=== PATIENT | male | born 1935 | race Caucasian/White ===

== ENCOUNTER → 2017-07-11 | Outpatient (CLI) | payer MEDICARE, OTHER ==
[~2017-07-11] MED LIST: ACIDOPHILUS PO; ALDACTONE50 MG PO; ALEVE220 MG PO; ALTACE 5MG5 MG PO; AMBIEN 10MG10 MG PO; AVODART 0.5MG0.5 MG PO; CALCIUM W/VITAM1 TAB PO; COREG12.5 MG PO; CYMBALTA; CYMBALTA60 MG PO; DIGITEK0.125 MG PO; DOXAZOCIN; FLOMAX 0.40.4 MG/CAP PO; GABAPENTIN100 MG PO; IRON325 M1 PO; LOPERAMIDE2 MG PO; MELATONIN5 M1 SL; NITROSTAT0.4 MG SL; NITROSTAT0.4 MG/TAB SL; NORCO 325 MG-51 TAB; PLAVIX 75MG TAB75 MG PO; PRAVACHOL 40MG40 MG PO; ROLAIDS220 M1 PO; SIMVASTATIN20 MG PO; ST. JOSEPH81 M2 PO; SUPER EPA 1201200 MG PO; TIAZAC180 MG PO; TYLENOL PM EXTR1 TA1 PO; VITAMIN B121000 MC2 SL; VITAMIN B6200 MG PO; VITAMIN C500 MG PO; VITAMIN D31000 I1 PO; ZOCOR 20MG20 MG PO
== END ==
LOC: COL.RAD 10:48
DX: N18.9 Chronic kidney disease, unspecified (principal); N17.9 Acute kidney failure, unspecified; N40.0 Benign prostatic hyperplasia without lower urinary tract symptoms; N32.89 Other specified disorders of bladder

== ENCOUNTER 2018-11-29 16:36 | Inpatient (IN) | payer MEDICARE, OTHER ==
[~2018-11-29] VITALS: Ht 193 cm; Wt 131.8 kg
[~2018-11-29 16:36] MED LIST changes: +CYMBALTA 60MG60 MG PO; -CYMBALTA60 MG PO; +VITAMIN B12 681 TAB PO; -VITAMIN B121000 MC2 SL
[2018-11-29 17:07] LABS: BASO % 0.4 % (0.0-2.0); EOS # 0.2 (0.0-0.7); EOS % 2.4 % (0-4.0); GRAN # 6.5 (1.4-6.5); GRAN % 69.5 % (42.2-75.2); HEMATOCRIT 38.5 % (42.0-52.0); HEMOGLOBIN 11.5 g/dl (13.5-18.0); LYMPH # 1.6 (1.2-3.4); LYMPH % 17.4 % (20.0-51.0); MEAN CELL VOLUME 95 fl (80.0-100.0); MEAN CORPUSCULAR HEMOGLOBIN 28 pg (27.0-31.0); MEAN CORPUSCULAR HGB CONC 30 g/dl (33.0-37.0); MEAN PLATELET VOLUME 9.8 fl (7.4-10.4); MONO # 0.9 (0.1-0.6); PLATELET COUNT 320 K/mm3 (130-400); RED BLOOD COUNT 4.06 M/mm3 (4.20-5.60); REDCELL DISTRIBUTION WIDTH-CV 17.9 % (11.5-14.5)
[2018-11-29 17:22] LABS: BILIRUBIN,TOTAL 0.3 mg/dL (0.0-1.0); C-REACTIVE PROTEIN 4.4 mg/dL (0.0-0.9); CALCIUM 9.1 mg/dL (8.4-10.2); CREATININE, serum 1.25 mg/dL (0.66-1.25); POTASSIUM 4.3 mmol/L (3.4-5.0); TOTAL PROTEIN 7.5 gm/dL (6.4-8.2)
[2018-11-29 17:29] LABS: ERYTHROCYTE SEDIMENTATION RATE 22 mm/hr (0-30)
[2018-11-29 18:49] LABS: TROPONIN-I < 0.012 ng/mL (0.000-0.035)
[2018-11-29] MEDS ORDERED: PROTONIX 40MG T40 MG PO (18:55)
[2018-11-29] MEDS ORDERED: PROAIR HFA0.09 MG/AC IH (18:56)
[2018-11-29] MEDS ORDERED: ASPIRIN 81M81 MG/TA2 PO (18:57)
[2018-11-29] MEDS ORDERED: ZEBETA 5MG5 MG PO (18:57)
[2018-11-29] MEDS ORDERED: HYZAAR 12.5 MG-1 TAB PO (18:58)
[2018-11-29] MEDS ORDERED: TYLENOL 8 HR PO (18:59)
[2018-11-29] MEDS ORDERED: VESICARE10 MG PO (18:59)
[2018-11-29] MEDS ORDERED: THE MEDICINE S200 M2 PO (19:00)
[2018-11-29] MEDS ORDERED: NATURAL E400 IU PO (19:01)
[2018-11-29] MEDS ORDERED: FLORAJEN A20 Billion PO (19:02)
[2018-11-29] MEDS ORDERED: VITAMIN D31000 I1 PO (19:02)
[2018-11-29] MEDS ORDERED: THEROMEGA1000 MG PO (19:02)
[2018-11-29] MEDS ORDERED: AMBIEN 5MG TABLE5 MG PO (19:10)
[2018-11-29] MEDS ORDERED: AMBIEN 10MG10 MG PO (19:47)
[2018-11-29] MEDS ORDERED: TYLENOL 500MG500 MG PO (19:49)
[2018-11-29] MEDS ORDERED: VITAMIN E 400 U4001 PO (19:51)
[2018-11-29] MEDS ORDERED: DEMADEX 20MG20 M1 PO (19:56)
[2018-11-29 22:00] VITALS: BP 127/90; PULSE 73
[2018-11-29 22:32] LABS: INR 1.2 (0.8-3.0); PROTHROMBIN TIME 13.5 SECONDS (9.7-12.8)
--- NOTE | 2018-11-29 22:55 | NUR ---
PT ARRIVED FROM ER BY SELF VIA GURNEY. PT IS ABLE TO AMBULATE AND USES CANE BUT GAIT IS NOT STEADY. PT WENT TO BATHROOM AND REMOVED GOWN AND DISLODGED IV FROM RIGHT AC. CATHETER IN TAKE AND PRESSURE APPLIED TILL BLEEDING STOPPED AND DRSG APPLIED. PT HAS TROUBLE FOLLOWING SOME DIRECTIONS. NEW IV STARTED IN RIGHT FOREARM X2 ATTEMPTS WITHOUT DIFFICULTIES. PT ADVISED THAT HE HAS NO CLUE OF WHAT MEDICATIONS HE TAKES AND TO WAIT TILL THE MORNING WHEN HIS COMES IN TO SEE HIM. PT'S LEFT ARM IS RED, SWOLLEN, AND HAS DRESSING OVER THE ELBOW PART OF ARM. PT IS PLEASANT AND COOPERATIVE. PT IS AWARE THAT HE WILL BE NPO AFTER MIDNIGHT. PT WAS GIVEN A SANDWICH BOX WITH ORANGE JUICE. BED ALARM PUT ON. ALSO PT IS ENCOURAGED TO USE THE URINAL IN BED.
[2018-11-29 23:24] VITALS: BP 147/51; PULSE 62
[2018-11-30] VITALS (10 sets, daily range): BP systolic 119–165; BP diastolic 38–94; PULSE 61–87; TEMP 97.8–98.6
--- NOTE | 2018-11-30 03:46 | NUR ---
RECEIVED CALL FROM TELEMETRY THAT LEADS WERE OFF OF PT. WENT INTO ROOM AND PT WAS SITTING BY THE WINDOW AND PT HAD TAKEN OFF ALL CLOTHING AND ROME WRAP FROM DRSG ON LEFT ARM. PT WAS COMPLETELY NUDE. PT WAS CONFUSSED. PT DID NOT REMEMBER THAT HE HAD A GOWN ON AND THAT WAS PROTECTIVE OFF HIS PERSONAL BELONGS. PT ADVISED THAT HE WAS GOING TO LEAVE. PT ADVISED THAT HE WAS SUPPOSE TO ONLY STAY FOR 3 HOURS. PT HAD WET THE BED. PT ALSO, FOLDED THE BLANKET AND TOP SHEET OF THE BED. PT'S FACE WAS RED AND PT KEPT LAUGHING IN A WEIRD LAUGH. PT WAS MOVED TO ROOM 357 TO BE CLOSER TO NURSES STATION TO WATCH PT CLOSELY. TALKED TO PT AND ADVISED HIM THAT HIS LEFT ARM HAS A SERIOUS INFECTION AND NEEDS TO BE TREATED. 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 PT WAS GOING TO CALL HIS MOTHER. ADVISED PT OF THE TIME AND THE PT DID NOT HAVE ANY IDEA IT WAS THAT TIME. CONVINCED PT THAT HE NEEDED TO TRY AND GET SOME REST. PT LAID DOWN IN BED. PUT THE BED ALARM ON AND CALL LIGHT WITHIN REACH.
--- NOTE | 2018-11-30 04:20 | NUR ---
CIRO HUERTA WAS ADVISED OF PT'S CONDUCT AND CHANGE IN MENTAL STATUS. CIRO HUERTA WENT INTO ROOM TO ASSESS. PT WAS A/O X4 AND PLEASANT. PT ADVISED WHAT A LITTLE SLEEP CAN DO FOR A PERSON. PT WAS ABLE TO GO BACK TO SLEEP.
--- NOTE | 2018-11-30 05:32 | NUR ---
PT HAS BEEN UP A FEW TIME SINCE 419, BUT HE IS REMINDED THAT IT IS STILL EARLY AND HE REALLY HAS NOT GOTTEN MUCH SLEEP. PT SLEEPS AND STATES, "YES, I KNOW YOU ARE RIGHT. I WILL TRY TO GO BACK TO SLEEP." PT THIS LAST TIME WOKE UP LOOKING FOR HIS . PT WAS ADVISED THAT IT IS STILL EARLY AND SHE WILL PROBABLY BE IN LATER THIS MORNING. PT WAS ASSISTED BACK INTO BED AND BED ALARM PLACED BACK ON, WITH CALL LIGHT WITHIN REACH.
--- NOTE | 2018-11-30 06:42 | NUR ---
PT IS AWAKE AND SITTING AT SIDE OF BED. PT IS WRENCHING HANDS. PT HAS A WORRIED LOOK ON FACE. ASKED PT WHAT HE WAS WORRIED ABOUT AND HE STATED, "I AM WORRIED ABOUT MY ARM AND MY . MY IS NOT HERE YET." ADVISED HIM THAT IT IS STILL EARLY FOR HIS TO BE HERE AND VISITING HOURS START AT 8AM. PT FELT BETTER, BUT WANTED TO SIT AT SIDE OF BED. LEFT ARM IS STILL RED, SWOLLEN, AND WARM TO TOUCH. PT IS ADVISED THAT HE HAS A CONSULT WITH DR. [facility]. NO NEEDS AT THIS TIME. CALL LIGHT IN REACH.
[2018-11-30 07:53] LABS: BASO % 0.4 % (0.0-2.0); EOS # 0.2 (0.0-0.7); EOS % 2.2 % (0-4.0); GRAN # 6.9 (1.4-6.5); GRAN % 69.1 % (42.2-75.2); HEMATOCRIT 37.6 % (42.0-52.0); HEMOGLOBIN 11.1 g/dl (13.5-18.0); LYMPH # 1.8 (1.2-3.4); LYMPH % 17.6 % (20.0-51.0); MEAN CELL VOLUME 94 fl (80.0-100.0); MEAN CORPUSCULAR HEMOGLOBIN 28 pg (27.0-31.0); MEAN CORPUSCULAR HGB CONC 30 g/dl (33.0-37.0); MEAN PLATELET VOLUME 9.9 fl (7.4-10.4); MONO % 10.3 % (1.7-9.3); PLATELET COUNT 316 K/mm3 (130-400); RED BLOOD COUNT 3.99 M/mm3 (4.20-5.60); REDCELL DISTRIBUTION WIDTH-CV 17.6 % (11.5-14.5)
[2018-11-30 07:59] LABS: INR 1.2 (0.8-3.0); PROTHROMBIN TIME 13.6 SECONDS (9.7-12.8)
[2018-11-30 08:05] LABS: ALBUMIN 3.9 gm/dL (3.5-5.0); BILIRUBIN,TOTAL 0.4 mg/dL (0.0-1.0); CALCIUM 9.4 mg/dL (8.4-10.2); CREATININE, serum 1.28 mg/dL (0.66-1.25); POTASSIUM 4.2 mmol/L (3.4-5.0); TOTAL PROTEIN 7.4 gm/dL (6.4-8.2)
--- NOTE | 2018-11-30 09:45 | NUR ---
Pt prepared for surgery. Physical assessment completed. Lt elbow is red, inflammed and swollen. Bilat radial pulses 2+. INT to RFA without redness/swelling. Further physical assessment findings WNL. Pt denies pain but states "my elbow is sore". Pt is alert, pleasant, conversational, but not entirely oriented. This RN at bedside when Dr Eaton removed old dressing and applied new to Lt elbow. On entering room now pt reports, "the took off the old dressing but someone else was going to put the new one on". Pt able to give birthday and location. Will continue to monitor
--- NOTE | 2018-11-30 11:38 | NUR ---
pT ARRIVED TO ROOM postoperatively, on RA he was 85% so this RN applied 2 L NC and lifted HOB. Encouraged to take deep breathes, it slowly increased to 89%. Post op vitals initiated, will continue to monitor
--- NOTE | 2018-11-30 12:32 | NUR ---
Plan to return home with spouse Cinthia at . Patient reports that his is is DPOA-HC. Patient indicated that he does not need home health care services. Pt reports that he uses [facility]. Patient reports that he uses a cane and no other DME. PCP is reported as Dr. Rowell. Patient reports that he is able to drive and does not use the 02 at home. No additional needs reported. Action: Patient may need therapy eval and support in that area. Will follow for care.
--- NOTE | 2018-11-30 13:56 | NUR ---
pT oxygenation maintaining at 96% on 3 L via NC so this RN decreased it to 2 L, will continue to monitor. Vitals stable, pt denies pain, cap refill still brisk in bilateral hands/fingers although pt unable to wiggle figners in lt hand. Wifeat bedside, call light in reach
--- NOTE | 2018-11-30 18:16 | NUR ---
pt back to RA, ate a hearty supper, vitals stable, denies pain, still no movement to left arm/fingers but this is not unexpected. Fingers are quite swollen but cap refill is brisk and will monitor site. Pt assited by two to stand to urinate. New IV started to RFA, fluids infusing. Pt denies needs, at bedside, call light in reach
--- NOTE | 2018-11-30 19:16 | NUR ---
Report given to Maricruz JORGE, pt awake in bed with at bedside, denies needs
--- NOTE | 2018-11-30 20:59 | NUR ---
IN ROOM WITH PT. PT IN BED WITH HOB AT 45 DEGREE ANGLE, RT PLACED PT ON 2L/NC BECAUSE O2 SATS AT 87% RA. PT DENIES PAIN, BUT STRAP AND GOWN AGITATES PT. THEREFORE, UNSNAPPED GOWN AND PUT DOWN AND TOOK STRAP OFF OF SLING. ADVISED PT TO LEAVE ARM ELEVATED ON PILLOW AND NOT TO TAKE OFF DRSG. PT GIVEN SNACK AND WATER. NO FURTHER NEEDS AT THIS TIME, CALL LIGHT IN REACH AND BED ALARM ON.
--- NOTE | 2018-11-30 22:31 | NUR ---
CALLED ANIL HUERTA IN REFERENCE TO PT'S AGITATION AND RESTLESSNESS, ALSO PT'S BP MANUALLY IS 110/38. ANIL HUERTA WILL PUT IN ORDERS FOR SERAQUEL.
[2018-12-01] VITALS (7 sets, daily range): BP systolic 110–167; BP diastolic 43–96; PULSE 60–89; TEMP 96.3–98.7
--- NOTE | 2018-12-01 00:14 | NUR ---
PT VERY AGITATED PT WAS SWINGING AT HIS , LIO JORGE WENT IN AND ADVISED HIM NOT TO DO THAT. PT IN BED PULLING OFF TELEMETRY AND KICKING LEGS IN AIR AND TRYING TO PULL THINGS AROUND HIM. PT LAUGHING FOR NO REASON. CALLED ANIL HUERTA AND ADVISED OF PT'S AGITATION AND RESTLESSNESS.
--- NOTE | 2018-12-01 02:50 | NUR ---
PT VERY AGITATED AND KEEPS PULLING OFF LEADS FROM TELEMETRY. KEEPS TRYING TO STOP HIM, BUT HE HAS LEGS UP IN THE AIR AND KICKING THEM. REMOVED TELEMETRY AND CALLED [facility] TO LET THEM KNOW IT WAS REMOVED COMPLETELY. WAS RELIEVED THAT IT WAS REMOVED, BECAUSE IT WAS ONE LESS THING SHE WOULD HAVE TO WORRY ABLE. CALL LIGHT WITHIN REACH.
--- NOTE | 2018-12-01 04:36 | NUR ---
PT WOULD NOT HOLD STILL WHILE TAKING VS. PT'S PUT ON THE TV AND PT SEEMS TO BE CALMER. PT'S O2 WAS AT 87%, PLACED 2L/NC ON PT. CALL LIGHT WITHIN REACH.
--- NOTE | 2018-12-01 05:05 | NUR ---
ADVISES THAT PT WILL NOT KEEP OXYGEN ON, HE KEEPS PULLING IT OFF HIS FACE.
--- NOTE | 2018-12-01 06:26 | NUR ---
PT TRIED TO TAKE OFF HIS DRSG ON HIS LEFT ARM. ADVISED PT TO LEAVE IT ALONE AND THAT IT NEEDS TO STAY ON. FIXED SMALL PART OF ROME WRAP ON DRSG, BUT STILL NICELY INTACT. PT MOVES FINGERS ON LEFT HAND AND CAP REFILL <3. ALSO COLOR NORMAL. PT TOOK OFF THE OXYGEN THAT WAS PLACED ON HIM, REPORTS HAD A DIFFICULT TIME TRYING TO KEEP IT ON HIM THAT SHE JUST STOPPED TRYING. ALSO TRIED TO STOP PT FROM PULLING OFF DRSG ON LEFT ARM. PT STILL APPEARS TO BE AGITATED AND VERY RESTLESS. ADVISED TO CALL IF SHE NEEDS ANY HELP. CALL LIGHT WITHIN REACH.
[2018-12-01 08:46] LABS: BASO % 0.1 % (0.0-2.0); EOS % 0.1 % (0-4.0); GRAN # 7.6 (1.4-6.5); GRAN % 77.4 % (42.2-75.2); LYMPH # 1.2 (1.2-3.4); LYMPH % 12.2 % (20.0-51.0); MEAN CELL VOLUME 92 fl (80.0-100.0); MEAN CORPUSCULAR HGB CONC 30 g/dl (33.0-37.0); MONO % 9.8 % (1.7-9.3); PLATELET COUNT 235 K/mm3 (130-400); RED BLOOD COUNT 3.17 M/mm3 (4.20-5.60); REDCELL DISTRIBUTION WIDTH-CV 17.2 % (11.5-14.5)
[2018-12-01 08:51] LABS: INR 1.2 (0.8-3.0); PROTHROMBIN TIME 13.1 SECONDS (9.7-12.8)
[2018-12-01 08:59] LABS: HEMATOCRIT 29.3 % (42.0-52.0); HEMOGLOBIN 8.9 g/dl (13.5-18.0); MEAN CORPUSCULAR HEMOGLOBIN 28 pg (27.0-31.0)
[2018-12-01 09:00] LABS: BILIRUBIN,TOTAL 0.3 mg/dL (0.0-1.0); CALCIUM 8.6 mg/dL (8.4-10.2); CREATININE, serum 1.3 mg/dL (0.66-1.25); POTASSIUM 3.7 mmol/L (3.4-5.0); TOTAL PROTEIN 5.9 gm/dL (6.4-8.2)
--- NOTE | 2018-12-01 14:22 | NUR ---
PT SLEEPING. REFUSED TX SO HE COULD REST.
--- NOTE | 2018-12-01 21:00 | NUR ---
PT SITTING IN RECLINER WITH BY SIDE, WATCHING SUPER BOWL. PT DENIES PAIN OR DISCOMFORT. PT'S O2 SATS AT 87% AND REFUSES TO WEAR OXYGEN, LS HAS INSP WHEEZING. PT DENIES SOB. LEFT ARM HAS DRSG, WITH NO EDEMA AND COLOR IS NORMAL AND NO WARM OR S/S OF INFECTION. PT WAS ADVISED OF 1500 ML FLUID RESTRICTION. NO NEEDS AT THIS TIME, CALL LIGHT WITHIN REACH.
--- NOTE | 2018-12-01 22:07 | NUR ---
CALLED ANIL HUERTA AND ADVISED HER THAT PT'S O2 SATS AT 87% RA AND PT REFUSING TO PUT OXYGEN ON. ALSO, IS AWARE THAT HE DOES NOT WANT IT ON AND SHE HAS BEEN OKAY WITH LETTING HIM DO WHAT HE WANTS.
--- NOTE | 2018-12-02 00:58 | NUR ---
PT HAD AN INCONTINENT EPISODE, THEREFORE, HE GOT UP OUT OF BED WITHOUT CALLING FOR ASSISTANCE. THE BED ALARM WENT OFF AND HE WAS ASSISTED TO THE BATHROOM AND PT AND BED WAS CHANGED. PT HAS BEEN RESTING BETTER TONIGHT, SO FAR. IS AT PT'S SIDE, SLEEPING IN RECLINER. PT CONTINUES TO REFUSE OXYGEN. LAST O2 READING WAS 88% ON ROOM AIR, OFFERED OXYGEN, BUT HE REFUSED AGAIN. NO NEEDS AT THIS TIME, CALL LIGHT WITHIN REACH, AND BED ALARM ON.
[2018-12-02 04:30] VITALS: BP 97/51; PULSE 84; TEMP 98
--- NOTE | 2018-12-02 05:21 | NUR ---
PT HAS RESTED/SLEPT MORE THIS NIGHT THAN LAST NIGHT. PT DOES CONTINUE TO GET UP WITHOUT CALLING FOR HELP. THE BED ALARM HAS BEEN GOING OFF. PT HAD AN INCONTINENT EPISODE ONCE THIS NIGHT AND GOWN AND BED CHANGE WAS DONE. PT ALSO GOT UP AND WENT AROUND THE BED AND WAS SITTING AT EDGE, THE BED ALARM WOULD NOT COME ON BECAUSE OF PLACEMENT OF WHERE PT WAS. ADVISED HIM TO PUT CALL LIGHT ON WHEN READY TO GET UP. PT DID NOT CALL BUT STAFF NOTICED HE GOT UP AND ASSISTED HIM. PT WAS ASSISTED BY CHARGE NURSE LIO AND PT GOT OUT OF BREATH FROM WALKING INTO THE BATHROOM AND BACK TO BED. PT'S O2 SATS WERE 82%, LOI RN PLACED O2 ON PT AND O2 SATS WENT UP TO 91% ON 2L/NC. PT LEFT IT ON. WENT INTO ROOM AND PT DID NOT HAVE IN HIS NOSE. ASSISTED HIM WITH PUTTING IT BACK INTO HIS NOSE AND HE LEFT IT IN. PT NOW SITTING IN BED WITH HOB ELEVATED TO 45 DEGREE ANGLE WITH CALL LIGHT WITHIN REACH AND BED ALARM ON.
[2018-12-02 06:00] LABS: BASO % 0.4 % (0.0-2.0); EOS # 0.2 (0.0-0.7); EOS % 2.2 % (0-4.0); GRAN # 6.2 (1.4-6.5); GRAN % 74.3 % (42.2-75.2); LYMPH # 1.1 (1.2-3.4); LYMPH % 13.5 % (20.0-51.0); MEAN CELL VOLUME 93 fl (80.0-100.0); MEAN CORPUSCULAR HEMOGLOBIN 28 pg (27.0-31.0); MEAN CORPUSCULAR HGB CONC 30 g/dl (33.0-37.0); MEAN PLATELET VOLUME 10.4 fl (7.4-10.4); MONO # 0.8 (0.1-0.6); MONO % 9.4 % (1.7-9.3); PLATELET COUNT 267 K/mm3 (130-400); RED BLOOD COUNT 3.58 M/mm3 (4.20-5.60)
[2018-12-02 06:08] LABS: ALBUMIN 3.3 gm/dL (3.5-5.0); BILIRUBIN,TOTAL 0.2 mg/dL (0.0-1.0); CALCIUM 8.9 mg/dL (8.4-10.2); CREATININE, serum 1.34 mg/dL (0.66-1.25); MAGNESIUM 1.6 mg/dL (1.6-2.3); POTASSIUM 3.9 mmol/L (3.4-5.0); TOTAL PROTEIN 6.3 gm/dL (6.4-8.2)
[2018-12-02 06:10] LABS: HEMATOCRIT 33.2 % (42.0-52.0)
--- NOTE | 2018-12-02 06:30 | NUR ---
PT TOOK OFF HIS OXYGEN AGAIN AND TELEMETRY. PT ADVISED THAT HE WANTS TO GET DRESSED AND GET READY TO GO HOME WITH HIS . ADVISED HIM THAT THE DOCTOR TO RELEASE HIM HAS TO SEE HIM FIRST BEFORE HE GOES HOME. PT IS NOT ABLE TO SIT STILL AND HE IS UP AND DOWN OUT OF BED. IS STILL IN ROOM WITH PT. REMOVED ON IV FROM RIGHT FOREARM, CATHETER INTACTED, APPLIED PRESSURE TILL BLEEDING STOPPED, THEN A PROTECTIVE DRSG. CALL LIGHT WITHIN REACH.
--- NOTE | 2018-12-02 07:12 | NUR ---
Sitting up in the chair with his at the bedside. Dr. Eaton was here to see the patient. No pain or needs reported at this time. The call light is in place.
--- NOTE | 2018-12-02 07:25 | NUR ---
DR. BOSWELL CALLED BACK AND ADVISED OF PT'S NON-COMPLIANCE.
[2018-12-02 07:36] VITALS: BP 137/49; PULSE 71; TEMP 97.7
[2018-12-02 10:47] VITALS: BP 154/81; PULSE 60; TEMP 97
--- NOTE | 2018-12-02 11:01 | NUR ---
Initial visit; Patient and his thanked [employer] for looking in on him and keeping him in [employer]'s prayers.
[2018-12-02] MEDS ORDERED: CEPHALEXIN500 M1 PO (14:27)
--- NOTE | 2018-12-02 14:29 | NUR ---
The patient is to discharge back home with his today, 12/02. The patient and patient's were interested in outpatient PT. The patient's reports that she would like to look around at the other therapy centers in [place] and make the appointment. The patient's Nurse Practitioner to write the patient a script for PT. SW presented and explained the IM form to the patient and patient's . The patient verbalized understanding, signed, and he was provided a copy. No additional needs at this time.
[2018-12-02 15:49] VITALS: BP 112/38; PULSE 84; TEMP 97
--- NOTE | 2018-12-02 16:27 | NUR ---
Discharge education completed with the and the patient prior to discharge. All questions answered per this nurse. INT removed. The patient was escorted out via WC.
== END 2018-12-02 16:28 | disposition home or self-care (01) | DRG 500 ==
LOC: COL.ER 16:36 → MEDICAL 19:30
PROVIDERS: Emergency Medicine; Nurse Practitioner Family; Orthopaedic Surgery; ADMIT Family Medicine
PROC: 0MB40ZZ Excision of Left Elbow Bursa and Ligament, Open Approach (ICD-10-PCS; principal; 2018-11-30 12:00)
DX: M71.122 Other infective bursitis, left elbow (principal); I50.23 Acute on chronic systolic (congestive) heart failure; G92 Toxic encephalopathy; L03.114 Cellulitis of left upper limb; F05 Delirium due to known physiological condition; I11.0 Hypertensive heart disease with heart failure; I25.10 Atherosclerotic heart disease of native coronary artery without angina pectoris; B95.61 Methicillin susceptible Staphylococcus aureus infection as the cause of diseases classified elsewhere; J44.9 Chronic obstructive pulmonary disease, unspecified; Z95.5 Presence of coronary angioplasty implant and graft; Z95.0 Presence of cardiac pacemaker; Z85.51 Personal history of malignant neoplasm of bladder; Z87.891 Personal history of nicotine dependence
CPT/HCPCS: 99222-AI; 99232-AI; A9284; J1644; J1940; J2060; J2250; J2795; J3010; J3370; J7050; J7512

== ENCOUNTER → 2019-01-02 | Outpatient (CLI) | payer MEDICARE, OTHER ==
[~2019-01-02] MED LIST changes: +AMBIEN 5MG TABLE5 MG PO; +ASPIRIN 81M81 MG/TA2 PO; +CEPHALEXIN500 M1 PO; +DEMADEX 20MG20 M1 PO; +FLORAJEN A20 Billion PO; +HYZAAR 12.5 MG-1 TAB PO; +NATURAL E400 IU PO; +PROAIR HFA0.09 MG/AC IH; +PROTONIX 40MG T40 MG PO; +THE MEDICINE S200 M2 PO; +THEROMEGA1000 MG PO; +TYLENOL 500MG500 MG PO; +TYLENOL 8 HR PO; +VESICARE10 MG PO; +VITAMIN E 400 U4001 PO; +ZEBETA 5MG5 MG PO
== END ==
LOC: ZCOL.LAB 15:38
DX: M70.32 Other bursitis of elbow, left elbow (principal)

== ENCOUNTER 2019-01-17 14:26 | Emergency (ER) | payer MEDICARE, OTHER ==
[~2019-01-17] VITALS: Ht 193 cm; Wt 122.7 kg
[2019-01-17 14:36] VITALS: TEMP 97.2
[2019-01-17 17:59] VITALS: BP 119/50; PULSE 60
== END 2019-01-17 18:24 | disposition home or self-care (01) ==
LOC: COL.ER 14:26
DX: S52.502A Unspecified fracture of the lower end of left radius, initial encounter for closed fracture (principal); S52.602A Unspecified fracture of lower end of left ulna, initial encounter for closed fracture; Z79.02 Long term (current) use of antithrombotics/antiplatelets; Z79.82 Long term (current) use of aspirin; W01.0XXA Fall on same level from slipping, tripping and stumbling without subsequent striking against object, initial encounter; Y92.009 Unspecified place in unspecified non-institutional (private) residence as the place of occurrence of the external cause
CPT/HCPCS: J2405; J3010; Q4050

== ENCOUNTER 2019-01-23 14:57 | Inpatient (IN) | payer MEDICARE, OTHER ==
[~2019-01-23] VITALS: Ht 193 cm; Wt 127.7 kg
[2019-01-23 15:45] LABS: BASO % 0.4 % (0.0-2.0); EOS # 0.1 (0.0-0.7); EOS % 1.1 % (0-4.0); GRAN # 6.2 (1.4-6.5); GRAN % 77.2 % (42.2-75.2); LYMPH # 0.8 (1.2-3.4); LYMPH % 9.5 % (20.0-51.0); MEAN CELL VOLUME 91 fl (80.0-100.0); MEAN CORPUSCULAR HGB CONC 32 g/dl (33.0-37.0); MEAN PLATELET VOLUME 9.5 fl (7.4-10.4); MONO # 0.9 (0.1-0.6); MONO % 11.2 % (1.7-9.3); PLATELET COUNT 282 K/mm3 (130-400); RED BLOOD COUNT 3.36 M/mm3 (4.20-5.60); REDCELL DISTRIBUTION WIDTH-CV 16.2 % (11.5-14.5)
[2019-01-23 15:48] LABS: ALBUMIN 3.5 gm/dL (3.5-5.0); BILIRUBIN,TOTAL 0.6 mg/dL (0.0-1.0); CALCIUM 8.9 mg/dL (8.4-10.2); CREATININE, serum 2.82 (0.66-1.25); POTASSIUM 4.2 mmol/L (3.4-5.0); TOTAL PROTEIN 6.6 gm/dL (6.4-8.2)
[2019-01-23 15:52] LABS: HEMATOCRIT 30.7 % (42.0-52.0); HEMOGLOBIN 9.9 g/dl (13.5-18.0); MEAN CORPUSCULAR HEMOGLOBIN 29 pg (27.0-31.0)
[2019-01-23 17:01] LABS: COLLECTION METHOD CLEAN CATCH
[2019-01-23 17:09] LABS: PH 5 (5-8); SQUAMOUS EPITHELIAL None Seen /hpf; URINE APPEARANCE Clear; URINE BACTERIA None Seen /hpf; URINE BILIRUBIN Negative (NEGATIVE); URINE BLOOD 2+ (NEGATIVE); URINE COLOR Yellow; URINE GLUCOSE Negative (NEGATIVE); URINE KETONE Negative (NEGATIVE); URINE LEUKOCYTE ESTERASE Negative (NEGATIVE); URINE NITRATE Negative (NEGATIVE); URINE PROTEIN(semi-quant) Negative (NEGATIVE); URINE RBC 20-50 /hpf; URINE UROBILINOGEN Negative (NEGATIVE)
[2019-01-23] MEDS ORDERED: TYLENOL 500MG500 MG PO (19:44)
[2019-01-23] MEDS ORDERED: VITAMIN B12 681 TAB PO (19:45)
[2019-01-23] MEDS ORDERED: ROLAIDS 675 MG-1 CT2 PO (19:47)
[2019-01-23] MEDS ORDERED: IMODIUM A-D2 MG PO (19:48)
[2019-01-23 21:08] VITALS: BP 110/62; PULSE 59; TEMP 97.9
--- NOTE | 2019-01-23 22:51 | NUR ---
PT ARRIVED FROM ER VIA WHEELCHAIR ACCOMPANIED BY HIS . PT HAS ABRASIONS ON BILATERAL KNEES THAT ARE SCABBED, LEFT HIP AREA BRUISED, FACIAL BRUISES ON RIGHT SIDE, BRUISES ON RIGHT ARM, AND CAST ON LEFT ARM FROM PREVIOUS FALL HAD BROKEN HIS WRIST. PT A/O X4, DENIES PAIN OR DISCOMFORT. ASSISTED WITH UPDATING MED DAMEON. PT ATE SANDWICH BOX WHEN CAME UP TO THE FLOOR. PT HAS NO FURTHER NEEDS AT THIS TIME CALL LIGHT WITHIN REACH.
[2019-01-24] VITALS (7 sets, daily range): BP systolic 102–129; BP diastolic 44–84; PULSE 58–71; TEMP 97.6–98.3
--- NOTE | 2019-01-24 | NUR ---
PT'S WAS CONCERNED BECAUSE PT WAS NOT GETTING HIS AMBIEN. CALLED CIRO HUERTA AND CIRO HUERTA ADVISED BECAUSE HE HAD A FALL LAST NIGHT AND HIS KIDNEY FUNCTION WE CANNOT GIVE HIM THE AMBIEN. EXPLAINED TO PT'S WHAT CIRO HUERTA ADVISED WHY HIS AMBIEN WAS BEING HELD. STILL IN ROOM WITH . PT IN BED RESTING. CALL LIGHT WITHIN REACH.
--- NOTE | 2019-01-24 05:06 | NUR ---
CALLED [facility] TO NOTIFY ORTHOPEDICS THAT PT IS HOSPITALIZED HERE, SPOKE TO BENEDICT AND SHE ADVISED THAT THEY HAVE RECEIVED THE CANCELATION FOR THE PT.
[2019-01-24 07:16] LABS: BASO % 0.4 % (0.0-2.0); EOS # 0.3 (0.0-0.7); EOS % 4.5 % (0-4.0); GRAN # 5.1 (1.4-6.5); GRAN % 71.2 % (42.2-75.2); HEMOGLOBIN 10.2 g/dl (13.5-18.0); LYMPH % 13.7 % (20.0-51.0); MEAN CELL VOLUME 94 fl (80.0-100.0); MEAN CORPUSCULAR HEMOGLOBIN 29 pg (27.0-31.0); MEAN CORPUSCULAR HGB CONC 31 g/dl (33.0-37.0); MEAN PLATELET VOLUME 9.7 fl (7.4-10.4); MONO # 0.7 (0.1-0.6); MONO % 9.8 % (1.7-9.3); PLATELET COUNT 296 K/mm3 (130-400); RED BLOOD COUNT 3.47 M/mm3 (4.20-5.60); REDCELL DISTRIBUTION WIDTH-CV 16.6 % (11.5-14.5)
[2019-01-24 07:30] LABS: CREATININE, serum 2.45 (0.66-1.25); POTASSIUM 4.4 mmol/L (3.4-5.0)
[2019-01-24 07:44] LABS: HEMATOCRIT 32.5 % (42.0-52.0)
--- NOTE | 2019-01-24 08:00 | NUR ---
PT ALERT AND ORIENTED X4. PT PLEASANT AND COOPERATIVE. PT ON ROOM AIR. PT'S LUNGS CLEAR THROUGHOUT. PT DENIES COUGH. PT'S ABD WNL. PT HAS CAST TO LEFT WRIST FROM RECENT FRACTURE FROM FALL. PT HAS LARGE BRUISE TO LEFT HIP FROM RECENT FALL. PT HAS ABRASIONS TO BILATERAL KNEES AND SCATTERED BRUISES ALL OVER AND TO RIGHT SIDE OF FACE FROM PREVIOUS FALLS.
--- NOTE | 2019-01-24 10:03 | NUR ---
Initial visit; Patient and his thanked airplane coverer for looking in on him and offering God's blessings.
--- NOTE | 2019-01-24 10:14 | NUR ---
SW attended clinical rounds to disucss discharge planning. Patient lives at home with his and plans to return there upon discharge. Patient's PCP is Dr Lane Rowell but will need to find a new PCP because Dr Rowell is retiring. Patient obtains prescriptions from [facility] and denies difficulty obtaining them. Patient does not have any home health services but PT and OT are consulted and will give their recommendations. Patient has a cane and walker at home but no other DME is reported. Patient reports he does not have a DPOA but hes does have a living will. SW reported she can provided DPOA forms if he is interested. SW will continue to follow and assist with discharge needs.
--- NOTE | 2019-01-24 11:17 | NUR ---
Patient was seen by PT and OT. It has been recommended that patient go to a SNF for post acute rehab. SW met with patient and about this recommendation. WILLIAM provided medicare.gov resouce list for nursing homes within 25 miles of [place]. Patient and would like to speak with their children before making a decision. WILLIAM will follow up this afternoon.
--- NOTE | 2019-01-24 16:00 | NUR ---
SW met followed up with patient and about PT and doctor recommendations for post acute rehab and if patient has chosen a SNF from the list provided. Patient is very reluctant to go to a fdc facility. Patient reports he does not want to pay for it and feels he is fine to go home. SW reported his insurance would cover the costs of SNF and he would likley be able to go home after he receives some rehab. Patient's would like patient to go to a SNF but patient refuses. reported that until he is able to walk on his own, without any assistance, he is not safe to return home. SW explained the risks of going to home after he is discharged but patient continues to refuse giving SW SNF choices. SW will leave a note for weekend SW to follow up tomorrow.
--- NOTE | 2019-01-24 20:03 | NUR ---
Pt resting in bed. at bedside. Pt denies pain. Respirations even and unlabored. Lungs clear. BS +. Pedal pulses equal, 2+. 2+ edema to BLE. Cast to L arm from fx sustained on previous fall. Large bruise to L hip and multiple bruises to R side of face from previous falls. Bilateral knee abrasions also noted. No needs noted. Will continue to monitor.
--- NOTE | 2019-01-24 22:30 | NUR ---
Pt requesting a sleeping pill. Home Ambien on hold. Marsha HUERTA contacted. Orders received for PRN Melatonin.
[2019-01-25] VITALS: BP 110/81; PULSE 62; TEMP 97.6
[2019-01-25 04:00] VITALS: BP 147/61; PULSE 66; TEMP 98.2
--- NOTE | 2019-01-25 06:35 | NUR ---
Pt siting at side of bed. at bedside. Pt has not slept much tonight. He reports "I feel great, I slept 3 hours last night". He was given PRN Melatonin to help with sleep and that was able to give him some rest.
[2019-01-25 07:45] LABS: MEAN CELL VOLUME 94 fl (80.0-100.0); MEAN CORPUSCULAR HGB CONC 32 g/dl (33.0-37.0); MEAN PLATELET VOLUME 9.7 fl (7.4-10.4); PLATELET COUNT 256 K/mm3 (130-400); RED BLOOD COUNT 3.28 M/mm3 (4.20-5.60); REDCELL DISTRIBUTION WIDTH-CV 16.6 % (11.5-14.5)
[2019-01-25 07:54] LABS: HEMATOCRIT 30.7 % (42.0-52.0); HEMOGLOBIN 9.7 g/dl (13.5-18.0); MEAN CORPUSCULAR HEMOGLOBIN 30 pg (27.0-31.0)
--- NOTE | 2019-01-25 07:54 | NUR ---
Report received and pt alert and oriented and resting in bed comfortably. Pt denied pain. Pt's at the bedside. Call light in reach.
[2019-01-25 08:09] LABS: CALCIUM 9.1 mg/dL (8.4-10.2); CREATININE, serum 1.76 (0.66-1.25); POTASSIUM 4.4 mmol/L (3.4-5.0)
--- NOTE | 2019-01-25 08:22 | NUR ---
Pt resting in bed comfortably and c/o L shoulder pain. Pt has cast around L arm due to L wrist fx. Pain med given. Call light in reach.
[2019-01-25 08:38] VITALS: BP 129/64; PULSE 64; TEMP 97.7
[2019-01-25 09:36] LABS: BAND 6 % (0-10); EOSINOPHIL 2 % (0-4); LYMPHOCYTE 13 % (20.0-51.0); NEUTROPHILS 69 % (42.0-75.2)
[2019-01-25 09:37] LABS: ANISOCYTOSIS 1+; PLATELET ESTIMATE NORMAL (NORMAL)
--- NOTE | 2019-01-25 10:17 | NUR ---
Pt resting in chair and talking with pt's . No concern. call light in reach.
--- NOTE | 2019-01-25 11:47 | NUR ---
The patients was in the room. I visited with them for some time and prayed with them before leaving.
--- NOTE | 2019-01-25 12:38 | NUR ---
Pt resting in chair watching TV. Pt denied pain. Pt's in rm. Call light in reach.
[2019-01-25 12:42] VITALS: BP 108/45; PULSE 60; TEMP 97.8
--- NOTE | 2019-01-25 13:57 | NUR ---
Pt on BSC and trying to have BM. Call light in reach.
--- NOTE | 2019-01-25 14:03 | NUR ---
SW met with about SNF. Patient is agreeable to SNF for short term rehab. Patient was presented with the medicare.gov referral list for rehab nursing. Patient signed choice form and it was placed in chart. Patient choose 1 [facility]. 2. [facility]. We are awaiting screening for placement. WILLIAM faxed referrals to both facilities.
--- NOTE | 2019-01-25 15:39 | NUR ---
Pt resting in chair and talking with pt's . No concern. Pt denied pain. Call light in reach.
[2019-01-25 16:42] VITALS: BP 140/76; PULSE 67; TEMP 97.5
--- NOTE | 2019-01-25 18:42 | NUR ---
Pt resting in chair and talking with pt's . Pt denied pain. No concern. Call light in reach.
[2019-01-25 21:50] VITALS: BP 125/77; PULSE 58; TEMP 97.3
--- NOTE | 2019-01-25 22:09 | NUR ---
PT resting in bed A+OX4 with at bedside. reports no pain. SOA when walking. cap refill <3. bilateral lower legs at taught, no pitting edema. left hip had a about 12" bruise from fall. no needs at this time. call light in reach
[2019-01-26] VITALS (7 sets, daily range): BP systolic 127–156; BP diastolic 49–75; PULSE 59–70; TEMP 97.5–98.4
--- NOTE | 2019-01-26 01:19 | NUR ---
pt reports no pain at this time. vitals stable. at bedside, call light in reach
--- NOTE | 2019-01-26 06:29 | NUR ---
pt had an uneventful night. slept throughout night with at bedside. no pain during night. pt on RA. IV flushes well. pt linens changed. no concerns at this time. vitals stable. call light in reach
--- NOTE | 2019-01-26 07:24 | NUR ---
report given to ANIA Streeter. pt reports no needs
--- NOTE | 2019-01-26 09:33 | NUR ---
Patient alert and oriented, answers questions appropriately. See assessment. Generalized bruising noted. Patient c/o left rib area pain. Lungs diminished in bases, clear in upper lobes. Tendernes with palpation noted to left ribs. Ice pack applied. No other c/o at this time.
[2019-01-26 09:57] LABS: CALCIUM 9.6 mg/dL (8.4-10.2); CREATININE, serum 1.48 (0.66-1.25); POTASSIUM 4.2 mmol/L (3.4-5.0)
[2019-01-26 10:03] LABS: BASO % 0.3 % (0.0-2.0); EOS # 0.3 (0.0-0.7); GRAN # 5.2 (1.4-6.5); GRAN % 72.9 % (42.2-75.2); HEMOGLOBIN 10.3 g/dl (13.5-18.0); LYMPH # 0.9 (1.2-3.4); LYMPH % 12.1 % (20.0-51.0); MEAN CELL VOLUME 95 fl (80.0-100.0); MEAN CORPUSCULAR HEMOGLOBIN 30 pg (27.0-31.0); MEAN CORPUSCULAR HGB CONC 31 g/dl (33.0-37.0); MEAN PLATELET VOLUME 9.8 fl (7.4-10.4); MONO # 0.7 (0.1-0.6); MONO % 10.3 % (1.7-9.3); PLATELET COUNT 288 K/mm3 (130-400); RED BLOOD COUNT 3.48 M/mm3 (4.20-5.60); REDCELL DISTRIBUTION WIDTH-CV 16.9 % (11.5-14.5)
--- NOTE | 2019-01-26 20:57 | NUR ---
Initial shift assessment done- denies pain--has been up in the chair most of the day- back to bed with 2 assists/gaitbelt and walker. Has hard splint with uday wrap to left arm- finger warn with good movement. Understands to call for assistance up- bed alarm on
[2019-01-27 03:29] VITALS: BP 133/49; PULSE 61; TEMP 97.6
--- NOTE | 2019-01-27 05:34 | NUR ---
Did not sleep as well last night-- wanting to sit at edge of bed every couple hours- watching TV,, states he does understand the need for him to go to rehab to get stronger- has agreed to go as of this morning,,
--- NOTE | 2019-01-27 07:00 | NUR ---
Received report, met patient. He is resting in bed awake and alert with head slightly elevated. is at bedside. No needs verbalized at this time. Call light is within reach.
[2019-01-27 07:51] LABS: BASO % 0.3 % (0.0-2.0); EOS # 0.3 (0.0-0.7); EOS % 3.6 % (0-4.0); GRAN # 5.3 (1.4-6.5); GRAN % 68.1 % (42.2-75.2); HEMOGLOBIN 10.2 g/dl (13.5-18.0); LYMPH # 1.1 (1.2-3.4); LYMPH % 14.6 % (20.0-51.0); MEAN CELL VOLUME 95 fl (80.0-100.0); MEAN CORPUSCULAR HEMOGLOBIN 30 pg (27.0-31.0); MEAN CORPUSCULAR HGB CONC 32 g/dl (33.0-37.0); MONO % 12.8 % (1.7-9.3); PLATELET COUNT 260 K/mm3 (130-400); REDCELL DISTRIBUTION WIDTH-CV 16.8 % (11.5-14.5)
[2019-01-27 07:52] LABS: HEMATOCRIT 32.2 % (42.0-52.0)
[2019-01-27 08:03] LABS: CALCIUM 9.4 mg/dL (8.4-10.2); CREATININE, serum 1.2 (0.66-1.25); POTASSIUM 4.5 mmol/L (3.4-5.0)
[2019-01-27 08:39] VITALS: BP 134/44; PULSE 59; TEMP 97.8
[2019-01-27] MEDS ORDERED: COZAAR 50MG50 MG/TAB PO (11:45)
[2019-01-27] MEDS ORDERED: OYSCO 500 + D 51 TAB PO (11:46)
[2019-01-27] MEDS ORDERED: DEMADEX10 MG PO (11:47)
[2019-01-27] MEDS ORDERED: MELAT3MGTAB PO (11:48)
--- NOTE | 2019-01-27 11:48 | NUR ---
WILLIAM spoke with Lori from [facility]. Patient is unable to be accepted because [facility] is full. Patient contacted [facility] about acceptance. SW left message.
[2019-01-27 11:53] VITALS: BP 137/42; PULSE 87; TEMP 97.7
--- NOTE | 2019-01-27 15:20 | NUR ---
Patient discharged to [facility] via wheelchair an [facility] transportation. Discharge packet given to courtesy van driver. Patient belongings sent with patient. Report called and given to Shauna.
== END 2019-01-27 15:20 | DRG 683 ==
LOC: COL.ER 14:57 → MEDICAL 16:54
PROVIDERS: Emergency Medicine; Hospitalist; Nurse Practitioner Family; Physician Assistant; ADMIT Internal Medicine
DX: N17.9 Acute kidney failure, unspecified (principal); I50.32 Chronic diastolic (congestive) heart failure; S52.602A Unspecified fracture of lower end of left ulna, initial encounter for closed fracture; S52.502A Unspecified fracture of the lower end of left radius, initial encounter for closed fracture; E87.2 Acidosis; Z66 Do not resuscitate; I11.0 Hypertensive heart disease with heart failure; I25.10 Atherosclerotic heart disease of native coronary artery without angina pectoris; J44.9 Chronic obstructive pulmonary disease, unspecified; Z95.0 Presence of cardiac pacemaker; Z95.5 Presence of coronary angioplasty implant and graft; Z85.51 Personal history of malignant neoplasm of bladder; Z91.81 History of falling; Z87.891 Personal history of nicotine dependence; I95.9 Hypotension, unspecified; W18.30XA Fall on same level, unspecified, initial encounter; M25.551 Pain in right hip; D64.9 Anemia, unspecified; N40.0 Benign prostatic hyperplasia without lower urinary tract symptoms
CPT/HCPCS: 99223-AI; 99233-AI; 99239; J1644; J7030

== ENCOUNTER 2019-01-30 06:46 | Day surgery (SDC) | payer MEDICARE, OTHER ==
[2019-01-30] VITALS (10 sets, daily range): BP systolic 120–163; BP diastolic 43–95; PULSE 75–87; TEMP 97.8–98.2
[~2019-01-30] VITALS: Ht 193 cm; Wt 125.0 kg
[~2019-01-30 06:46] MED LIST changes: +COZAAR 50MG50 MG/TAB PO; +DEMADEX10 MG PO; +IMODIUM A-D2 MG PO; +MELAT3MGTAB PO; +OYSCO 500 + D 51 TAB PO; +ROLAIDS 675 MG-1 CT2 PO
--- NOTE | 2019-01-30 07:15 | NUR ---
Unable to do patient's Medication Reconciliation due to physician transfering the patient's status/orders causing the MedRec to be locked.
--- NOTE | 2019-01-30 07:20 | NUR ---
MedRec from [facility] attached to patient's chart.
--- NOTE | 2019-01-30 09:30 | NUR ---
Patient arrives back to [facility] drowsy, patient monitor applied, vitals stable. Patient's spouse at bedside, Dr Eaton is visiting with her. Patient resting comfortably on cart. Left wrist elevated on pillows.
--- NOTE | 2019-01-30 09:55 | NUR ---
Patient is still drowsy, denies pain or wanting/needing anything at this time. Family is back in waiting room waiting for patient to wake up more. Vitals stable.
[2019-01-30] MEDS ORDERED: COZAAR 50MG50 MG/TAB PO (10:07)
[2019-01-30] MEDS ORDERED: OYSTERCAL-D 5001 TAB PO (10:10)
[2019-01-30] MEDS ORDERED: MELAT3MGTAB PO (10:11)
[2019-01-30] MEDS ORDERED: DEMADEX10 MG PO (10:14)
--- NOTE | 2019-01-30 10:30 | NUR ---
Patient more awake at this time. Patient's family brought back to bedside. Patient given juice and muffin. Reports some pain with movement in left wrist.
[2019-01-30] MEDS ORDERED: B COMPLEX #11 TA1 PO (10:44)
--- NOTE | 2019-01-30 11:45 | NUR ---
Patient reports pain is getting better, but still feels a dull constant ache.
--- NOTE | 2019-01-30 11:55 | NUR ---
O2 applied at this time. Patient SpO2 level was dipping down to 88-90% on room air after PRN pain medication administration.
--- NOTE | 2019-01-30 12:30 | NUR ---
Patient resting comfortably in room with family at bedside. Oxygen reduced from 2L/min to 1L/min at this time. Waiting for Dr Eaton to finish his current surgery, so he can finish discharge orders on patient.
--- NOTE | 2019-01-30 13:00 | NUR ---
Dismissal instructions obtained from Dr Eaton at this time. Patient O2 discontinued at this time.
--- NOTE | 2019-01-30 13:15 | NUR ---
Patient report called to Nixon, nursing staff at [facility] at this time.
[2019-01-30] MEDS ORDERED: MIRALAX PA17 GM/Dose PO (13:19)
--- NOTE | 2019-01-30 13:45 | NUR ---
Dimissal instructions gone over with patient's spouse and daughter. Both verbalize understanding, and all questions answered. Patient is assisted with getting his clothes on and transfering to wheelchair without any difficulties. Patient reports pain is much better/tolerable at this time.
--- NOTE | 2019-01-30 14:00 | NUR ---
Patient and family are discharged to [facility] staff. Patient and family leave thanking staff for services.
== END 2019-01-30 14:00 | disposition home or self-care (01) ==
LOC: SDCO 06:46
DX: S52.572A Other intraarticular fracture of lower end of left radius, initial encounter for closed fracture (principal); S52.692A Other fracture of lower end of left ulna, initial encounter for closed fracture; W10.9XXA Fall (on) (from) unspecified stairs and steps, initial encounter; I25.2 Old myocardial infarction; I11.0 Hypertensive heart disease with heart failure; I50.9 Heart failure, unspecified; I43 Cardiomyopathy in diseases classified elsewhere; I25.10 Atherosclerotic heart disease of native coronary artery without angina pectoris; Z95.5 Presence of coronary angioplasty implant and graft; Z95.0 Presence of cardiac pacemaker; Z79.899 Other long term (current) drug therapy; Z79.02 Long term (current) use of antithrombotics/antiplatelets; Z96.642 Presence of left artificial hip joint; F17.210 Nicotine dependence, cigarettes, uncomplicated; J44.9 Chronic obstructive pulmonary disease, unspecified
CPT/HCPCS: J2704; J3010; J7030

== ENCOUNTER → 2019-02-03 | Outpatient (REF) ==
[~2019-02-03] MED LIST changes: +B COMPLEX #11 TA1 PO; +MIRALAX PA17 GM/Dose PO; +OYSTERCAL-D 5001 TAB PO
[2019-02-03 10:19] LABS: BASO % 0.3 % (0.0-2.0); EOS # 0.2 (0.0-0.7); EOS % 1.8 % (0-4.0); GRAN # 6.6 (1.4-6.5); GRAN % 73.5 % (42.2-75.2); HEMOGLOBIN 10.9 g/dl (13.5-18.0); LYMPH # 1.1 (1.2-3.4); LYMPH % 11.8 % (20.0-51.0); MEAN CELL VOLUME 95 fl (80.0-100.0); MEAN CORPUSCULAR HEMOGLOBIN 30 pg (27.0-31.0); MEAN CORPUSCULAR HGB CONC 31 g/dl (33.0-37.0); MONO # 1.1 (0.1-0.6); MONO % 11.9 % (1.7-9.3); PLATELET COUNT 311 K/mm3 (130-400); RED BLOOD COUNT 3.67 M/mm3 (4.20-5.60)
[2019-02-03 10:28] LABS: HEMATOCRIT 34.8 % (42.0-52.0)
[2019-02-03 10:45] LABS: CALCIUM 9.3 mg/dL (8.4-10.2); CREATININE, serum 1.04 (0.66-1.25); POTASSIUM 4.8 mmol/L (3.4-5.0)
== END ==
LOC: ZLAB.STJ 10:07
PROVIDERS: Family Medicine
DX: R79.89 Other specified abnormal findings of blood chemistry (principal); R68.89 Other general symptoms and signs

== ENCOUNTER → 2019-02-15 | Outpatient (CLI) | payer MEDICARE, OTHER ==
[2019-02-15 08:29] LABS: COLLECTION METHOD CLEAN CATCH
[2019-02-15 08:37] LABS: CALCIUM 9.1 mg/dL (8.4-10.2); CREATININE, serum 1.08 (0.66-1.25); POTASSIUM 4.2 mmol/L (3.4-5.0)
[2019-02-15 09:11] LABS: MUCOUS Present /lpf; PH 5 (5-8); SQUAMOUS EPITHELIAL None Seen /hpf; URINE APPEARANCE Clear; URINE BACTERIA None Seen /hpf; URINE BILIRUBIN Negative (NEGATIVE); URINE BLOOD Negative (NEGATIVE); URINE COLOR Yellow; URINE GLUCOSE Negative (NEGATIVE); URINE KETONE Negative (NEGATIVE); URINE LEUKOCYTE ESTERASE Negative (NEGATIVE); URINE NITRATE Negative (NEGATIVE); URINE PROTEIN(semi-quant) Negative (NEGATIVE); URINE UROBILINOGEN Negative (NEGATIVE)
== END ==
LOC: ZCOL.LAB 06:45
PROVIDERS: Nurse Practitioner
DX: R79.89 Other specified abnormal findings of blood chemistry (principal); R82.90 Unspecified abnormal findings in urine

== ENCOUNTER → 2019-03-10 | Outpatient (REF) ==
[~2019-03-10] MED LIST changes: +NEOSPORIN1 OIN OP; +NORCO 325 MG-51 TAB PO; +SEROQUEL 2525 MG/TAB PO; +ZOLOFT 50MG50 MG PO
[2019-03-10 09:43] LABS: BASO % 0.3 % (0.0-2.0); EOS # 0.1 (0.0-0.7); EOS % 0.5 % (0-4.0); GRAN # 8.3 (1.4-6.5); GRAN % 75.2 % (42.2-75.2); HEMOGLOBIN 10.7 g/dl (13.5-18.0); LYMPH # 1.4 (1.2-3.4); LYMPH % 12.4 % (20.0-51.0); MEAN CELL VOLUME 89 fl (80.0-100.0); MEAN CORPUSCULAR HEMOGLOBIN 28 pg (27.0-31.0); MEAN CORPUSCULAR HGB CONC 31 g/dl (33.0-37.0); MEAN PLATELET VOLUME 10.4 fl (7.4-10.4); MONO # 1.2 (0.1-0.6); MONO % 11.2 % (1.7-9.3); PLATELET COUNT 342 K/mm3 (130-400); RED BLOOD COUNT 3.85 M/mm3 (4.20-5.60); REDCELL DISTRIBUTION WIDTH-CV 15.2 % (11.5-14.5)
[2019-03-10 09:45] LABS: HEMATOCRIT 34.4 % (42.0-52.0)
[2019-03-10 09:49] LABS: ALBUMIN 3.7 gm/dL (3.5-5.0); BILIRUBIN,TOTAL 0.6 mg/dL (0.0-1.0); CALCIUM 9.2 mg/dL (8.4-10.2); CHOLESTEROL RISK RATIO 2.3; CREATININE, serum 1.28 (0.66-1.25); POTASSIUM 4.1 mmol/L (3.4-5.0); TOTAL PROTEIN 7.6 gm/dL (6.4-8.2)
[2019-03-10 10:20] LABS: THYROID STIMULATING HORMONE 2.3 uIU/mL (0.465-4.680)
== END ==
LOC: ZLAB.STJ 09:30
PROVIDERS: Internal Medicine
DX: D64.9 Anemia, unspecified (principal); I11.0 Hypertensive heart disease with heart failure

== ENCOUNTER 2019-03-12 11:31 | Inpatient (IN) | payer MEDICARE, OTHER ==
[~2019-03-12] VITALS: Ht 193 cm; Wt 123.3 kg
[~2019-03-12 11:31] MED LIST changes: -NEOSPORIN1 OIN OP; -NORCO 325 MG-51 TAB PO; -SEROQUEL 2525 MG/TAB PO; -ZOLOFT 50MG50 MG PO
--- NOTE | 2019-03-12 13:30 | NUR ---
arrived on unit per WC from radiology with dx of fractured left hip, assisted out of WC and into bed with slide board and he tolerated well, hygiene provided and he was able to use urinal and voided clear yellow urine, MEKA hose placed on right leg and SCDs on bilaterally, into gown, has skin tear to right elbow,
[2019-03-12] MEDS ORDERED: SEROQUEL 2525 MG/TAB PO (14:00)
[2019-03-12] MEDS ORDERED: NORCO 325 MG-51 TAB PO (14:01)
[2019-03-12] MEDS ORDERED: ZOLOFT 50MG50 MG PO (14:01)
[2019-03-12] MEDS ORDERED: NEOSPORIN1 OIN OP (14:04)
--- NOTE | 2019-03-12 14:30 | NUR ---
notified FRANDY Cisneros of consult
[2019-03-12 14:47] LABS: BASO % 0.3 % (0.0-2.0); EOS # 0.1 (0.0-0.7); EOS % 1.2 % (0-4.0); GRAN # 8.2 (1.4-6.5); GRAN % 74.9 % (42.2-75.2); LYMPH # 1.6 (1.2-3.4); LYMPH % 14.6 % (20.0-51.0); MEAN CELL VOLUME 90 fl (80.0-100.0); MEAN CORPUSCULAR HGB CONC 30 g/dl (33.0-37.0); MEAN PLATELET VOLUME 9.9 fl (7.4-10.4); MONO # 0.9 (0.1-0.6); MONO % 8.5 % (1.7-9.3); PLATELET COUNT 360 K/mm3 (130-400); RED BLOOD COUNT 3.65 M/mm3 (4.20-5.60); REDCELL DISTRIBUTION WIDTH-CV 15.3 % (11.5-14.5)
[2019-03-12 14:58] LABS: ALBUMIN 3.5 gm/dL (3.5-5.0); BILIRUBIN,TOTAL 0.5 mg/dL (0.0-1.0); CALCIUM 9.1 mg/dL (8.4-10.2); CREATININE, serum 1.31 (0.66-1.25); HEMATOCRIT 32.9 % (42.0-52.0); HEMOGLOBIN 9.9 g/dl (13.5-18.0); MEAN CORPUSCULAR HEMOGLOBIN 27 pg (27.0-31.0); POTASSIUM 3.7 mmol/L (3.4-5.0); TOTAL PROTEIN 7.2 gm/dL (6.4-8.2)
[2019-03-12 15:16] LABS: INR 1.3 (0.8-3.0); PROTHROMBIN TIME 14.2 SECONDS (9.7-12.8)
--- NOTE | 2019-03-12 15:30 | NUR ---
resting in bed, parsons cath inserted under sterile technique with clear yellow urine returned, toleraated well, IV started, at bedside
[2019-03-12 15:49] VITALS: BP 115/48; PULSE 59; TEMP 98.1
--- NOTE | 2019-03-12 16:20 | NUR ---
Dr Amanda notified that vascular lab personnel have left for the day and she stated order for echo to be done tomorrow was ok
--- NOTE | 2019-03-12 16:28 | NUR ---
telemetry unit was unavailable earlier but is now on patient and transmission confirmed with semiconductor equipment technician, will need to have echo cardiogram and cardiology consult before having surgery so spoke with Dr Longoria and will not be cleared for surgery until at least tomorrow, FRANDY Cisneros notified and will let him eat, patient notified
[2019-03-12 17:12] LABS: COLLECTION METHOD CLEAN CATCH
--- NOTE | 2019-03-12 17:13 | NUR ---
Dr Alcala and his nurse were in to see patient and now FRANDY Cisneros with orthopaedics visiting with patient, pacer interrogation completed
--- NOTE | 2019-03-12 17:43 | NUR ---
notified by someone in radiology patient had echo done in December, notified Dr Alcala's nurse regarding whether he needed another one done, she will check his record and call back
[2019-03-12 18:01] LABS: PH 7 (5-8); SQUAMOUS EPITHELIAL None Seen /hpf; URINE APPEARANCE Clear; URINE BACTERIA None Seen /hpf; URINE BILIRUBIN Negative (NEGATIVE); URINE BLOOD 2+ (NEGATIVE); URINE COLOR Straw; URINE GLUCOSE Negative (NEGATIVE); URINE KETONE Negative (NEGATIVE); URINE LEUKOCYTE ESTERASE Negative (NEGATIVE); URINE NITRATE Negative (NEGATIVE); URINE PROTEIN(semi-quant) Negative (NEGATIVE); URINE RBC 20-50 /hpf; URINE UROBILINOGEN Negative (NEGATIVE)
--- NOTE | 2019-03-12 18:12 | NUR ---
resting in bed and denies needs or c/os
--- NOTE | 2019-03-12 18:52 | NUR ---
bedside shift report given to ANIA Issa
[2019-03-12 19:12] VITALS: BP 129/49; PULSE 60; TEMP 98.2
[2019-03-12 19:46] VITALS: BP 129/49; PULSE 59; TEMP 97.7
--- NOTE | 2019-03-12 21:30 | NUR ---
pt resting in bed A+Ox4 with some confusion, has hard time finding the correct words. parsons draining freely, no kinks. placed a no stat lock on left leg. no pain. pt had large loose BM in bedpan. shift assessment complete. pt NPO. no needs at this time. call light in reach
[2019-03-12 23:33] VITALS: BP 132/44; PULSE 62; TEMP 98.1
[2019-03-13] VITALS (157 sets, daily range): BP systolic 99–168; BP diastolic 43–92; PULSE 56–79; TEMP 97.7–98.4; O2SAT 86–100
--- NOTE | 2019-03-13 02:53 | NUR ---
TURNING PT THROUGHOUT NIGHT. SACREAL REGION IS RED AND BANCHABLE. LINENS CHANGED NEEDED.
--- NOTE | 2019-03-13 05:46 | NUR ---
PT HAD AN UNEVENTFUL NIGHT. PAIN ONLY WHEN TURNING. YANCEY DRAINING FREELY, NO KINKS, SECURED TO LEFT LEG. MEKA HOSE AND SCD ON LEFT LEG. ICE APPLIED TO RIGHT HIP. IV FLUIDS RUNNING AT ORDERED RATE. IV FLUSHES WELL, NO REDNESS NO PAIN. NPO SINCE MIDNIGHT. NO NEEDS AT THIS TIME. CALL LIGHT IN REACH. FALL PRECAUTIONS ON PLACE.
--- NOTE | 2019-03-13 07:05 | NUR ---
REPORT GIVEN TO ANIA TEJADA
--- NOTE | 2019-03-13 08:30 | NUR ---
Dr Aj have been in to see patient. Just wating for completetion of ECHO to see if patient can go to surgery. Patient has been resting ok this am. Denies pain or nausea at this time. Gracia secured to leg, urine is yellow and clear. Patient is alert and partially oriented. Keeps forgetting why he is here. No other changes at this time. Call light within reach.
[2019-03-13 09:15] LABS: BASO % 0.2 % (0.0-2.0); EOS # 0.1 (0.0-0.7); EOS % 1.3 % (0-4.0); GRAN # 6.1 (1.4-6.5); GRAN % 72.5 % (42.2-75.2); LYMPH # 1.3 (1.2-3.4); LYMPH % 15.6 % (20.0-51.0); MEAN CELL VOLUME 90 fl (80.0-100.0); MEAN CORPUSCULAR HGB CONC 30 g/dl (33.0-37.0); MEAN PLATELET VOLUME 9.8 fl (7.4-10.4); MONO # 0.8 (0.1-0.6); MONO % 9.9 % (1.7-9.3); PLATELET COUNT 344 K/mm3 (130-400); RED BLOOD COUNT 3.37 M/mm3 (4.20-5.60); REDCELL DISTRIBUTION WIDTH-CV 15.3 % (11.5-14.5)
[2019-03-13 09:16] LABS: HEMATOCRIT 30.4 % (42.0-52.0); HEMOGLOBIN 9.1 g/dl (13.5-18.0); MEAN CORPUSCULAR HEMOGLOBIN 27 pg (27.0-31.0)
[2019-03-13 09:25] LABS: CREATININE, serum 1.11 (0.66-1.25)
--- NOTE | 2019-03-13 09:32 | NUR ---
Initial visit; Hernesto thanked Referral Clerk for looking in on him, offering God's blessings and keeping him in her prayers.
--- NOTE | 2019-03-13 09:33 | NUR ---
SW met with the patient to discuss a discharge plan. The patient lives in [place] with his , Cinthia. The patient has a walker that he uses daily and he reports independence with ADLs. The patients PCP is Dr. Blanco and the patient receives his medications at [facility]. The patient reports no difficulties obtaining his medications. The patient does not have advanced directives in the EMR, but he was interested in obtaining a DPOA-HC form. SW provided the form to the patient. The patient plans to return home upon discharge. WILLIAM will continue to follow for discharge recommendations.
--- NOTE | 2019-03-13 12:00 | NUR ---
Patient has gone down for surgery. His has been notified. No pre-ops ordered, called Anesthesia to double check. Consent signed and on the chart. Oral care and patient was cleaned up before going down. No other changes at this time.
--- NOTE | 2019-03-13 17:00 | NUR ---
Patient is back from surgery. Rene Vail in seeing patient at this time. Patients is at bedside. Patient is drowsy and is a little hard to wake. He keeps trying to take his oxygen off and his telemetry pads. Aqacel dressing to right hip is C/D/I. Patient is on 4l a min per NC. Vital signs are stable at this time. No other changes at this time. Call light within reach.
[2019-03-13 18:28] LABS: ARTERIAL BLD GAS O2 SATURATION 88.6 % (92-100); ARTERIAL BLD GAS TCO2 CT 36.2; ARTERIAL BLOOD GAS HCO3 33.2 meq/L (22-26); ARTERIAL BLOOD GAS PO2 79.6 mmHg (80-100)
--- NOTE | 2019-03-13 18:30 | NUR ---
Patient transferring to ICU, he is on Bi-Pap at this time. ABG results called to Selam HUERTA by the respiratory therapist. Explained to patients that he is transferring down. Patient more drowsy than before at this time. He is hard to wake up. RT in room. Will call report and transfer patient once a room is ready. No other changes at this time. Call light within reach.
[2019-03-13 18:31] LABS: ARTERIAL BLOOD GAS PCO2 99.3 mmHg (35-45); ARTERIAL BLOOD GAS pH 7.14 (7.35-7.45)
--- NOTE | 2019-03-13 19:20 | NUR ---
Patient arrived to ICU accompanied by RT and ANIA Jarquin and ANIA Haider. Patient not purposefully responding. Will assume care of patient at this time.
--- NOTE | 2019-03-13 19:20 | NUR ---
Report called to Hilario JORGE in ICU. Patient has been transferred to ICU. HIs went downstairs to the waiting room. Patient was trasferred with Bi-pap on all the way down. All belongings packed up and sent with patient. Chart sent [facility] patient.
--- NOTE | 2019-03-13 19:45 | NUR ---
Dr. Duncan arrived to patient room, patient also in room at this time. Patient more awake, combative with bipap, not following commands at this time. Frequent reorientation to person, place and situation unsuccessful. Dr. Duncan discusses case with and whether to intubate. Patient ABG's significantly improved from previously, patient started on precedex gtt. After discussing case with patient and son via phone, Dr. Duncan is holding on intubating at this time. Will continue to monitor.
[2019-03-13 20:00] LABS: ARTERIAL BLD GAS O2 SATURATION 98.4 % (92-100); ARTERIAL BLD GAS TCO2 CT 28.6; ARTERIAL BLOOD GAS BASE EXCESS 1.3 (-2-2); ARTERIAL BLOOD GAS HCO3 27.1 meq/L (22-26); ARTERIAL BLOOD GAS PCO2 48.6 mmHg (35-45); ARTERIAL BLOOD GAS pH 7.36 (7.35-7.45)
[2019-03-13 20:55] LABS: ARTERIAL BLOOD GAS pH 7.41 (7.35-7.45)
[2019-03-13 20:56] LABS: ARTERIAL BLD GAS TCO2 CT 30; ARTERIAL BLOOD GAS BASE EXCESS 3.7 (-2-2)
--- NOTE | 2019-03-13 22:05 | NUR ---
Patient taken to CT by this nurse and Mariela RT. Patient tolerated ok, mild agitation. Gone from unit from [id number].
[2019-03-13 22:09] LABS: BILIRUBIN,TOTAL 0.5 mg/dL (0.0-1.0); CREATININE, serum 1.39 (0.66-1.25); MAGNESIUM 1.8 mg/dL (1.6-2.3); PHOSPHOROUS 5.1 mg/dL (2.5-4.5); POTASSIUM 4.7 mmol/L (3.4-5.0); TOTAL PROTEIN 6.1 gm/dL (6.4-8.2)
[2019-03-13 23:06] LABS: BASO % 0.2 % (0.0-2.0); EOS % 0.2 % (0-4.0); GRAN # 10.2 (1.4-6.5); GRAN % 79.5 % (42.2-75.2); HEMATOCRIT 28.7 % (42.0-52.0); HEMOGLOBIN 8.6 g/dl (13.5-18.0); LYMPH # 1.1 (1.2-3.4); LYMPH % 8.8 % (20.0-51.0); MEAN CELL VOLUME 90 fl (80.0-100.0); MEAN CORPUSCULAR HEMOGLOBIN 27 pg (27.0-31.0); MEAN CORPUSCULAR HGB CONC 30 g/dl (33.0-37.0); MEAN PLATELET VOLUME 9.9 fl (7.4-10.4); MONO # 1.4 (0.1-0.6); MONO % 10.8 % (1.7-9.3); PLATELET COUNT 338 K/mm3 (130-400); REDCELL DISTRIBUTION WIDTH-CV 15.1 % (11.5-14.5)
[2019-03-14] VITALS (564 sets, daily range): BP systolic 97–122; BP diastolic 45–82; PULSE 59–72; TEMP 97.8–101.6; O2SAT 60–100
--- NOTE | 2019-03-14 00:10 | NUR ---
Patient assessment completed and charted at this time. Patient on bipap and precedex, tolerating well at this time. Will continue to monitor and assess.
[2019-03-14 01:16] LABS: ARTERIAL BLD GAS O2 SATURATION 97.9 % (92-100); ARTERIAL BLD GAS TCO2 CT 32.4; ARTERIAL BLOOD GAS BASE EXCESS 5.1 (-2-2); ARTERIAL BLOOD GAS HCO3 30.8 meq/L (22-26); ARTERIAL BLOOD GAS PCO2 51.7 mmHg (35-45); ARTERIAL BLOOD GAS pH 7.39 (7.35-7.45)
--- NOTE | 2019-03-14 01:45 | NUR ---
This nurse alarmed by sound of bipap alarming in room. Patient had pulled of mask. Patient is confused of place and situation, but is able to follow verbal commands from this nurse and carry on conversations at this time. *0225: Patient still able to follow verbal commands and cues, but repeating the same phrase "I need 7 salads" over and over for a period of 10 minutes. During this time, nurse would interrupt and patient would be able to follow commands. Dr. Camacho notified and recommends CTA at this time. *[id number]: Patient taken to CT by this nurse and ANIA Fatima. Notified Dr. Camacho and he stated patient may remain off of bipap until ABG at 0500 this AM. Will continue to monitor.
[2019-03-14 05:10] LABS: BASO % 0.3 % (0.0-2.0); EOS % 0.1 % (0-4.0); GRAN % 78.2 % (42.2-75.2); LYMPH # 0.8 (1.2-3.4); LYMPH % 10.5 % (20.0-51.0); MEAN CELL VOLUME 91 fl (80.0-100.0); MEAN CORPUSCULAR HGB CONC 30 g/dl (33.0-37.0); MEAN PLATELET VOLUME 10.2 fl (7.4-10.4); MONO # 0.8 (0.1-0.6); MONO % 10.4 % (1.7-9.3); PLATELET COUNT 303 K/mm3 (130-400); RED BLOOD COUNT 2.77 M/mm3 (4.20-5.60); REDCELL DISTRIBUTION WIDTH-CV 15.3 % (11.5-14.5)
[2019-03-14 05:11] LABS: HEMATOCRIT 25.2 % (42.0-52.0); HEMOGLOBIN 7.5 g/dl (13.5-18.0); MEAN CORPUSCULAR HEMOGLOBIN 27 pg (27.0-31.0)
[2019-03-14 05:23] LABS: CALCIUM 8.4 mg/dL (8.4-10.2); CREATININE, serum 1.52 (0.66-1.25); MAGNESIUM 1.7 mg/dL (1.6-2.3); PHOSPHOROUS 4.2 mg/dL (2.5-4.5); POTASSIUM 4.8 mmol/L (3.4-5.0)
[2019-03-14 05:43] LABS: ARTERIAL BLD GAS O2 SATURATION 96.8 % (92-100); ARTERIAL BLD GAS TCO2 CT 29.5; ARTERIAL BLOOD GAS HCO3 28.3 meq/L (22-26); ARTERIAL BLOOD GAS PCO2 41.3 mmHg (35-45); ARTERIAL BLOOD GAS PO2 99.5 mmHg (80-100); ARTERIAL BLOOD GAS pH 7.45 (7.35-7.45)
[2019-03-14 06:48] LABS: COLLECTION METHOD CLEAN CATCH
[2019-03-14 06:55] LABS: MUCOUS Present /lpf; PH 5 (5-8); SQUAMOUS EPITHELIAL 0-2 /hpf; URINE APPEARANCE Hazy; URINE BACTERIA None Seen /hpf; URINE BILIRUBIN Negative (NEGATIVE); URINE BLOOD 3+ (NEGATIVE); URINE COLOR Yellow; URINE GLUCOSE Negative (NEGATIVE); URINE KETONE Negative (NEGATIVE); URINE LEUKOCYTE ESTERASE 2+ (NEGATIVE); URINE NITRATE Negative (NEGATIVE); URINE PROTEIN(semi-quant) 2+ (NEGATIVE); URINE RBC >50 /hpf; URINE UROBILINOGEN Negative (NEGATIVE)
--- NOTE | 2019-03-14 06:58 | NUR ---
Pt intermittently awake and alert when not sleeping. While awake pt aggitated with interventions i.e. breathing treatment mask, auscultation and palpation during assessment - pt taking off neb mask, non-violent pushing of hands away during assessment. Pt oriented to first name and city of residence only. Disoriented to hospitalization, situation, , year/time of year - pt reoriented - able to repeat back hip fracture surgery but unable to repeat back other orientation questions. Spouse in waiting room sleeping. Call light in reach. Bed alarm on
--- NOTE | 2019-03-14 07:30 | NUR ---
MD Dakota at bedside
--- NOTE | 2019-03-14 08:07 | NUR ---
MD Esequiel office called - spoke with branch officer d/t not present at office yet - notified of consultation
--- NOTE | 2019-03-14 08:28 | NUR ---
ANIA Davies in room to place PICC line
--- NOTE | 2019-03-14 10:00 | NUR ---
Pt attempting to pull at PICC line and Gracia Catheter. Soft mitts applied to both hands - pt educated rationale - pt unable to comprehend.
--- NOTE | 2019-03-14 10:43 | NUR ---
Pt remains confused. Reorientation unsuccessful
--- NOTE | 2019-03-14 11:06 | NUR ---
SW attended clinical rounds. Patient appears to be confused. Patient will stay in the ICU today and possibly transfer to the surgical floor tomorrow. SW will speak with patient's about discharge plan once comes to the hospital.
--- NOTE | 2019-03-14 12:01 | NUR ---
Initial visit; Patient in surgical procedure, Children'S Entertainer ministered to his , letting her know of the availability of spiritual care and offered comfort and God's blessings.
--- NOTE | 2019-03-14 14:45 | NUR ---
SW met with patient's and daughter about discharge plan. Patient's inquired if patient would be a candidate for IPR. SW reported that she can contact IPR director and see if she can screen patient. Patient's signed a choice form for 1. IPR and 2. [facility]. SW also faxed updates to [facility] and informed them of patient's choices.
--- NOTE | 2019-03-14 15:30 | NUR ---
Spouse and daughter at bedside. Update given. Educational material provided. Questions invited and answered Pt able to recognize and name spouse, unable to recognize and remeber daughter and daughters name
--- NOTE | 2019-03-14 17:30 | NUR ---
MD Vin here assessing pt and speaking with pt's spouse and daughter
[2019-03-14 18:20] LABS: HEMATOCRIT 23.5 % (42.0-52.0)
--- NOTE | 2019-03-14 19:18 | NUR ---
Confirmed with MD Vin OK to administer PRN Ativan while Precedex gtt infusing
--- NOTE | 2019-03-14 20:10 | NUR ---
SHIFT CHANGE PT IS REPOSITIONED AND DRESSING ON RIGHT HIP IS ASSESSED. DRESSING IS APPROX 80% SATURATED, BUT OUTSIDE OF AQUACELL DRESSING IS CDI. PT HAS BILAT MEKA HOSE AND SCD'S ON. PT'S RIGHT EJ IS REINFORCED WITH TAPE. PT HAS BILAT HANDS IN MITTS DUE TO PT PICKING AT LINES. PT KNOWS ONLY HIS NAME, NOT ABLE TO ANSWER BIRTHDAY, PRESIDENT, OR LOCATION. PT IMMEDIATELY FOLLOWING SHIFT CHANGE WAS ABLE TO SQUEEZE MY HANDS ONLY, BUT NOW IS NOT FOLLOWING ANY DIRECTIONS, WORD-SALAD, AND SPEAKING INCOHERANT RANDOM WORDS. 2014: HOSPITALIST NOTIFIED DUE TO PT WAS REPORTED TO BE A&O X3 WITH CONFUSION FOR DAYSHIFT, BUT IS ONLY RESPONDING TO NAME. DR MACIEL IS REQUESTING 1U PRBC TO BE INFUSED AND STAT CT.
[2019-03-14 21:10] LABS: ARTERIAL BLD GAS O2 SATURATION 94.5 % (92-100); ARTERIAL BLD GAS TCO2 CT 26.2; ARTERIAL BLOOD GAS BASE EXCESS 1.9 (-2-2); ARTERIAL BLOOD GAS HCO3 25.2 meq/L (22-26); ARTERIAL BLOOD GAS PCO2 33.3 mmHg (35-45); ARTERIAL BLOOD GAS PO2 73.2 mmHg (80-100)
--- NOTE | 2019-03-14 21:40 | NUR ---
PT LEFT ICU FOR CT OF HEAD AT 2139. WHILE AT CT PT WAS VERY AGITATED AND SWINGING AT STAFF, SPEAKING INCOHERENTLY. PT DOES RESPOND TO HIS NAME, BUT DOES NOT FOLLOW DIRECTION/COMMANDS. PT RETURNED TO ICU FROM CT AT 2205.
[2019-03-15] VITALS (613 sets, daily range): BP systolic 107–159; BP diastolic 51–98; PULSE 59–71; TEMP 97.8–101.2; O2SAT 62–100
--- NOTE | 2019-03-15 01:40 | NUR ---
PT TEMP REASSESSED. AGAIN 100.0 ORAL, BUT PT WILL NOT COOPERATE TO KEEP MOUTH CLOSED. AXILLARY TEMP 102.4. TYLENOL ADMINISTERED.
--- NOTE | 2019-03-15 06:00 | NUR ---
PT AMS, DIFFICULT TO WAKE, AND DIET ORDERED IS NPO; PT UNABLE TO ATTEMPT BOWEL REGIMINE THIS AM. ADDITIONALLY, PTS BED WAS REPLACED LAST NIGHT FOR MAINTENANCE NEEDS. NEW BED WAS ZEROED WITH SHEETS AND SCD MACHINE. PT THIS AM WAS APPROXIMATELY 11 KG HEAVIER.
--- NOTE | 2019-03-15 07:00 | NUR ---
Pt opens eyes when called loudly, unable to follow other commands. Unable to state name//location. No family present. Aquacell dressing stable, no leakage. Non-productive wet sounding cough noted. Precedex gtt infusing - rate confirmed with ANIA Yin during bedside report. IV fluids discotinued overnight. Pt is hot to touch, blanked removed leaving sheet - overhead fan turned on, fevers overnight reported, afebrile currently. Bilateral hand mitts removed, passive ROM performed, mitts re-applied d/t attempts to pull and IV lines and catheter tubing - educated on importance of lines/tubes and rationale for mitts.
[2019-03-15 07:18] LABS: BASO % 0.2 % (0.0-2.0); EOS # 0.1 (0.0-0.7); EOS % 0.7 % (0-4.0); GRAN # 7.3 (1.4-6.5); LYMPH # 1.2 (1.2-3.4); LYMPH % 12.4 % (20.0-51.0); MEAN CELL VOLUME 90 fl (80.0-100.0); MEAN CORPUSCULAR HGB CONC 30 g/dl (33.0-37.0); MEAN PLATELET VOLUME 10.2 fl (7.4-10.4); MONO # 1.3 (0.1-0.6); MONO % 13.2 % (1.7-9.3); PLATELET COUNT 246 K/mm3 (130-400); RED BLOOD COUNT 2.82 M/mm3 (4.20-5.60); REDCELL DISTRIBUTION WIDTH-CV 15.3 % (11.5-14.5)
[2019-03-15 07:24] LABS: HEMATOCRIT 25.4 % (42.0-52.0); HEMOGLOBIN 7.7 g/dl (13.5-18.0); MEAN CORPUSCULAR HEMOGLOBIN 27 pg (27.0-31.0)
[2019-03-15 07:28] LABS: ALBUMIN 2.7 gm/dL (3.5-5.0); CALCIUM 8.7 mg/dL (8.4-10.2); CREATININE, serum 1.52 (0.66-1.25); POTASSIUM 4.4 mmol/L (3.4-5.0); TOTAL PROTEIN 5.7 gm/dL (6.4-8.2)
--- NOTE | 2019-03-15 09:00 | NUR ---
MD Vin here at bedside speaking with MD Lise and assessing pt
--- NOTE | 2019-03-15 10:05 | NUR ---
MD Dakota at bedside. Plan to attempt to wean down off Precedex gtt further. Orders recieved.
--- NOTE | 2019-03-15 11:15 | NUR ---
BiPap applied, pt tolerating well
--- NOTE | 2019-03-15 12:00 | NUR ---
BiPap removed per family request.
--- NOTE | 2019-03-15 12:45 | NUR ---
MD Lise on unit speaking with pt's family
[2019-03-15 12:58] LABS: MAGNESIUM 1.9 mg/dL (1.6-2.3); PHOSPHOROUS 4.5 mg/dL (2.5-4.5)
[2019-03-15 13:05] LABS: PRE ALBUMIN 7.5 mg/dL (17.6-36.0)
--- NOTE | 2019-03-15 13:30 | NUR ---
BiPap applied, pt tolerating well
--- NOTE | 2019-03-15 16:26 | NUR ---
BiPap removed per family request. Spouse, daughter and son now at bedside
--- NOTE | 2019-03-15 18:00 | NUR ---
RASS = +1, pt able to tolerate PO seroquel with 1 tablespoon of pudding. Pt opening mouth for more pudding after swallowing pill.
--- NOTE | 2019-03-15 18:49 | NUR ---
DNR code status wished by DPOA and family
--- NOTE | 2019-03-15 19:00 | NUR ---
Pt has been able to self remove BiPap during shift
--- NOTE | 2019-03-15 20:00 | NUR ---
PT WILL RESPOND TO HIS NAME BY TURNING HIS HEAD AND OPENING EYES, BUT SOMNOLENT THAT HE ALMOST IMMEDIATELY CLOSES HIS EYES AND RETURNS BACK TO SLEEP. AFTER MULTIPLE ATTEMPTS TO WAKE AND FOLLOW COMMANDS PT IS ABLE TO FOLLOW COMMAND TO BEND LEFT KNEE AND SQEEZE HANDS. HAND FIRE LOSS PREVENTION ENGINEER IS EQUAL AND STRONG. PT REMAINS AGITATED AND COMBATIVE WHEN ADJUSTED IN BED. ICE PACK PLACED ON RIGHT HIP. SCD'S ON. RT CALLED TO BE PLACED ON BIPAP. ORAL CARE PERFORMED WITH SUCTION ATTACHED.
[2019-03-16] VITALS (645 sets, daily range): BP systolic 127–154; BP diastolic 51–98; PULSE 59–94; TEMP 97.9–99.6; O2SAT 70–100
--- NOTE | 2019-03-16 | NUR ---
PT BATHED, LINENS CHANGED. LEFT MEKA HOSE REMOVED FOR BATHING. AFTER REMOVAL OF LEFT MEKA HOSE, KEISHA OF LEFT FOOT HAS TWO REDDENED AND RAISED LINEAR GODOY, SKIN INTACT. FOLLOWING BATH, LEFT MEKA HOSE REMAINS OFF AND SCD'S REPLACED BACK ON. WILL CONTINUE TO MONITOR AREA.
--- NOTE | 2019-03-16 04:30 | NUR ---
REPLACED MEKA HOSE BACK ON LEFT LEG.
[2019-03-16 05:26] LABS: BASO % 0.2 % (0.0-2.0); EOS # 0.3 (0.0-0.7); EOS % 2.9 % (0-4.0); GRAN # 7.9 (1.4-6.5); LYMPH # 0.8 (1.2-3.4); MEAN CELL VOLUME 92 fl (80.0-100.0); MEAN CORPUSCULAR HGB CONC 30 g/dl (33.0-37.0); MEAN PLATELET VOLUME 10.4 fl (7.4-10.4); MONO # 1.2 (0.1-0.6); MONO % 11.4 % (1.7-9.3); PLATELET COUNT 251 K/mm3 (130-400); RED BLOOD COUNT 2.78 M/mm3 (4.20-5.60); REDCELL DISTRIBUTION WIDTH-CV 15.6 % (11.5-14.5)
[2019-03-16 05:28] LABS: HEMATOCRIT 25.6 % (42.0-52.0); HEMOGLOBIN 7.7 g/dl (13.5-18.0); MEAN CORPUSCULAR HEMOGLOBIN 28 pg (27.0-31.0)
[2019-03-16 05:38] LABS: ALBUMIN 2.6 gm/dL (3.5-5.0); BILIRUBIN,TOTAL 0.5 mg/dL (0.0-1.0); CALCIUM 8.8 mg/dL (8.4-10.2); CREATININE, serum 1.12 (0.66-1.25); MAGNESIUM 2.1 mg/dL (1.6-2.3); PHOSPHOROUS 3.2 mg/dL (2.5-4.5); TOTAL PROTEIN 5.7 gm/dL (6.4-8.2)
--- NOTE | 2019-03-16 06:20 | NUR ---
PT ABLE TO FOLLOW COMMAND TO SIT UP FOR XRAY IN BED THIS AM. HOWEVER, STILL REMAINS SOMNOLENT, RESTLESS, AND DOES NOT VERBALLY RESPOND APPROPRIATELY WHEN SPOKEN TO.
--- NOTE | 2019-03-16 07:02 | NUR ---
REPORT GIVEN TO ANIA MUNOZ.
--- NOTE | 2019-03-16 07:25 | NUR ---
Pt in bed calm, Oxymask in place, pt opens eys briefly (1-2seconds) to name before closing eyes again. Pt unable to perform hand grasp when mitts were removed for passive ROM and neurovascular check. Pt unable to follow command for sustained eye opening. Pt moving all extremities - legs:moderate strength arms: normal strength With Sharee,RT, BiPap attempted - pt became aggitated waving arms and self removing mask. Oxymask placed back on. No family currently present Aquacell dressing in place, drainage remains stable on dressing - no leakage. Pt feels hot to touch, afebrile, overhead fan placed on low. TPN infusing, rate confirmed.
--- NOTE | 2019-03-16 10:00 | NUR ---
BiPap attempted, pt continued to remove from face.
--- NOTE | 2019-03-16 12:30 | NUR ---
Pt moved to ICU room 7 on existing bed. All lines and tubes transfered without complications.
--- NOTE | 2019-03-16 13:51 | NUR ---
Family (spouse,son,daughter) at bedside. Pt resting comfortably now, RASS=0 when awoken. Family updated. MD Dakota notified family present - planning for family meeting tomorrow morning to start at [phone].
--- NOTE | 2019-03-16 15:00 | NUR ---
BiPap attempted, pt continued to remove from face
--- NOTE | 2019-03-16 19:00 | NUR ---
Pt has been able to self remove BiPap during shift
--- NOTE | 2019-03-16 19:17 | NUR ---
received report from lc tubbs.
--- NOTE | 2019-03-16 21:29 | NUR ---
PATIENT HAS BEEN VERY AGITATTED SINCE COMING ON SHIFT. HE HAS BEEN PULLING AT HIS OXYMASK WHICH MAKES HIS O2 SATURATION DROP INTO THE 80'S. I GAVE A 0.5 MG OF ATIVAN. SEE EMAR. WILL CONTINUE TO MONITOR PATIENT.
--- NOTE | 2019-03-16 23:01 | NUR ---
PATIENT CONTINUES TO PULL AT HIS OXYMASK, EVEN WITH THE MITTS ON. I HAVE GONE IN THE ROOM EVERY 10-15 MINUTES TO REAPPLY THE OXYMASK. PATIENTS O2 SATURATION DROPS IN THE LOW 80'S WHEN NOT WEARING THE MAST.
[2019-03-17] VITALS (326 sets, daily range): BP systolic 142–160; BP diastolic 54–60; PULSE 60–61; TEMP 98–98.9; O2SAT 85–100
--- NOTE | 2019-03-17 00:32 | NUR ---
PATIENT IS STILL PRETTY AGITATED. GAVE PATIENT MOREPHINE TO HOPEFULLY HELP DECREASE SO PAIN. SEE EMAR. WILL CONTINUE TO MONITOR PATIENT.
--- NOTE | 2019-03-17 03:10 | NUR ---
PATIENT BECAME INCREASINGLY AGITATTED. PATIENT PULLED OFF HIS OXYMASK, [place], AND WAS REACHING FOR HIS PICC LINE. GAVE ATIVAN AND MORPHINE. SEE EMAR.
[2019-03-17 05:31] LABS: BASO % 0.2 % (0.0-2.0); EOS # 0.5 (0.0-0.7); EOS % 4.3 % (0-4.0); GRAN % 72.1 % (42.2-75.2); LYMPH # 1.5 (1.2-3.4); LYMPH % 12.3 % (20.0-51.0); MEAN CELL VOLUME 95 fl (80.0-100.0); MEAN CORPUSCULAR HGB CONC 29 g/dl (33.0-37.0); MEAN PLATELET VOLUME 10.2 fl (7.4-10.4); MONO # 1.3 (0.1-0.6); PLATELET COUNT 324 K/mm3 (130-400); RED BLOOD COUNT 3.15 M/mm3 (4.20-5.60); REDCELL DISTRIBUTION WIDTH-CV 15.8 % (11.5-14.5)
[2019-03-17 05:36] LABS: HEMOGLOBIN 8.6 g/dl (13.5-18.0); MEAN CORPUSCULAR HEMOGLOBIN 27 pg (27.0-31.0)
[2019-03-17 05:37] LABS: CALCIUM 8.9 mg/dL (8.4-10.2); CREATININE, serum 1.07 (0.66-1.25); MAGNESIUM 1.9 mg/dL (1.6-2.3); PHOSPHOROUS 4.6 mg/dL (2.5-4.5); POTASSIUM 4.5 mmol/L (3.4-5.0)
--- NOTE | 2019-03-17 07:21 | NUR ---
gave report to lc tubbs.
--- NOTE | 2019-03-17 07:45 | NUR ---
BiPap applied, long periods of apnea observed - MD Dakota on unit and aware.
--- NOTE | 2019-03-17 08:15 | NUR ---
Family (spouse,son,daughter) here at bedside. Moved to private family conference room for meeting with MD Dakota
--- NOTE | 2019-03-17 08:26 | NUR ---
Right hemiarthroplasty incision site dressing change performed - incision stable, no drainage, redness, all incision intact without openings. New Aquacel dressing applied, dated and timed. Pt tolerated well
--- NOTE | 2019-03-17 10:30 | NUR ---
Family meeting with MD Lise and family complete. Comfort measures in place. Dining services have delivered care package, Kirstin Hightower notified - quilt provided. Analyst Salesgus Conroy called and present for family. Family tearful, positive reinforcement given, tissues provided. Monitors and TPN discontinued.
--- NOTE | 2019-03-17 11:49 | NUR ---
Family seen and comfort quilt delivered with explanation. Family, and two adult children are at bedside and appear to be coping well. Will follow up as indicated. Pt appears comfortable. Is moving at times but family reports this is his normal.
--- NOTE | 2019-03-17 12:09 | NUR ---
Initial visit; Patient's family thanked Perpetual Inventory Clerk for looking in on them and offering comfort and prayer and continued Spiritual Care.
--- NOTE | 2019-03-17 13:30 | NUR ---
Patient is admitted to the floor from ICU. Family at bedside. Patient seems to be resting comfortably at this time. He does not respond to questions being asked. Oxygen on at 2l/min per NC. No other changes at this time. Call light within reach.
--- NOTE | 2019-03-17 18:30 | NUR ---
Patient appears to be resting comfortably at this time. Family at bedside. He is not grabbing or pulling at things, did not give roxanol at this time. Family would like to give him some later after everyone leaves and take the oxygen off.
--- NOTE | 2019-03-17 21:00 | NUR ---
Pt. laying in bed with family at bedside. Pt. is on comfort care measures at this time. Pt. assessment complete. Pt. is not responsived to touch. PICC to rt. upper arm patent. Family denies needs at this time. Call light within reach.
--- NOTE | 2019-03-18 02:13 | NUR ---
Pt.'s son called for nurse marianaisswyatt. Pt. appears to have . Heart rate ascultated by this nurse no heart tones noted. Heart rate ascultated by ANIA Felipe no heart tones noted. Time of 212. seed production field supervisor notified. BRADLEY Doss notified.
--- NOTE | 2019-03-18 02:38 | NUR ---
Gracia catheter discontinued at this time. PICC removed from Rt. upper arm See PICC removal
--- NOTE | 2019-03-18 04:40 | NUR ---
Pt.'s body released to [facility].
== END 2019-03-18 04:41 | disposition expired | DRG 469 ==
LOC: COL.RAD 11:31 → SURG 13:46 → ICU 13:46 → SURG 19:00 → ICU 03-13 19:35 → SURG 03-17 13:24
PROVIDERS: Anesthesiology Critical Care Medicine; Internal Medicine; Internal Medicine Pulmonary Disease; Nurse Practitioner Family; Orthopaedic Surgery; ADMIT Internal Medicine
PROC: 0SRR0J9 Replacement of Right Hip Joint, Femoral Surface with Synthetic Substitute, Cemented, Open Approach (ICD-10-PCS; principal; 2019-03-13 12:45)
DX: S72.091A Other fracture of head and neck of right femur, initial encounter for closed fracture (principal); J96.01 Acute respiratory failure with hypoxia; J96.02 Acute respiratory failure with hypercapnia; N17.9 Acute kidney failure, unspecified; I50.22 Chronic systolic (congestive) heart failure; F05 Delirium due to known physiological condition; N39.0 Urinary tract infection, site not specified; W19.XXXA Unspecified fall, initial encounter; Z91.81 History of falling; I25.10 Atherosclerotic heart disease of native coronary artery without angina pectoris; Z66 Do not resuscitate; Z51.5 Encounter for palliative care; D64.9 Anemia, unspecified; I11.0 Hypertensive heart disease with heart failure; Z95.5 Presence of coronary angioplasty implant and graft; I25.2 Old myocardial infarction; Z95.0 Presence of cardiac pacemaker; J44.9 Chronic obstructive pulmonary disease, unspecified; N40.0 Benign prostatic hyperplasia without lower urinary tract symptoms; Z85.51 Personal history of malignant neoplasm of bladder; Z87.891 Personal history of nicotine dependence; R45.1 Restlessness and agitation; G47.33 Obstructive sleep apnea (adult) (pediatric); G31.83 Neurocognitive disorder with Lewy bodies; F02.80 Dementia in other diseases classified elsewhere, unspecified severity, without behavioral disturbance, psychotic disturbance, mood disturbance, and anxiety
CPT/HCPCS: 99223-AI; 99233-AI; A4216; A4217; A9284; C1751; C1776; C9113; J0610; J0690; J0692; J1170; J1644; J1650; J1815; J2060; J2250; J2270; J2405; J2795; J3010; J3370; J3475; J3480; J7030; J7050; J7120; J7131; P9016; Q9967